=== PATIENT | female | born 1995 | race Caucasian/White ===

== ENCOUNTER 2018-02-09 15:05 | Emergency (ER) | payer SELFPAY ==
--- NOTE | 2018-02-09 15:57 | EDM.PDOCBH ---
ED HPI GENERAL MEDICAL PROBLEM - General Chief Complaint: Behavioral/Psych Stated Complaint: SUICIDAL Time Seen by Provider: 02/09/18 15:28 Source of Information: Reports: Patient History Limitations: Reports: No Limitations - History of Present Illness INITIAL COMMENTS - FREE TEXT/NARRATIVE: 22-year-old female with history of depression and anxiety presenting with suicidal ideation. Patient states she had an inpatient stay at [facility] in [place] in November of this year. After that inpatient psychiatric stay she lost her job. And after losing her job she is unable to afford her psychiatric medications. She was on Lexapro, hydroxyzine and trazodone. The last time she was able to take any of these medications is probably one month ago. Over the past few days patient has felt extremely depressed and suicidal with thoughts of harming herself. She has cut herself with a knife on her hips bilaterally. Also has been drinking more heavily than normal. Has plans to either drink too much to kill herself or take too many pills to kill herself. Patient was able to present to the emergency department today after being driven by her cousin. patient currently feels hopeless and no longer wants to live. Headache Pain Score (Numeric/FACES): 7 - Related Data Allergies Allergy/AdvReac Type Severity Reaction Status Date / Time meperidine [From Demerol] Allergy Airway Verified 02/09/18 15:18 Tightness Home Meds: Home Meds Escitalopram [Lexapro] 0 mg PO DAILY 02/09/18 [History] hydrOXYzine HCl [hydrOXYzine] 0 mg PO ASDIRECTED 02/09/18 [History] traZODone HCl [Trazodone HCl] 0 mg PO BEDTIME 02/09/18 [History] Past Medical History Psychiatric History: Reports: Anxiety, Depression - Past Surgical History HEENT Surgical History: Reports: Tonsillectomy GI Surgical History: Reports: Appendectomy Social & Family History - Tobacco Use Smoking Status *Q: Current Every Day Smoker Years of Tobacco use: 5 Packs/Tins Daily: 0.7 - Caffeine Use Caffeine Use: Reports: Soda - Recreational Drug Use Recreational Drug Use: No ED ROS GENERAL - Review of Systems Review Of Systems: See Below Constitutional: Reports: No Symptoms HEENT: Reports: No Symptoms Respiratory: Reports: No Symptoms Cardiovascular: Reports: No Symptoms Endocrine: Reports: No Symptoms GI/Abdominal: Reports: No Symptoms Musculoskeletal: Reports: No Symptoms Skin: Reports: Wound Neurological: Reports: No Symptoms Psychiatric: Reports: Suicidal Ideation ED EXAM, BEHAVIORAL HEALTH - Physical Exam Exam: See Below Exam Limited By: No Limitations General Appearance: Alert, No Apparent Distress Back Exam: Normal Inspection, Full Range of Motion Neurological: Alert, CN II-XII Intact, No Motor/Sensory Deficits Psychiatric: Alert, Depressed Mood, Tearful, Suicidal Plan, Suicidal Thoughts Skin Exam: Warm, Dry, Other (Several extremely superficial abrasions to the bilateral hips) COURSE, BEHAVIORAL HEALTH COMP - Course Vital Signs: Last Vital Signs Temp 36.4 C 02/09/18 21:00 Pulse 81 02/09/18 21:00 Resp 16 02/09/18 21:00 BP 108/73 02/09/18 21:00 Pulse Ox 96 02/09/18 21:00 Orders, Labs, Meds: Laboratory Tests 02/09/18 02/09/18 02/09/18 Range/Units 16:13 16:13 16:13 WBC 8.86 (3.98-10.04) K/mm3 RBC 5.55 H (3.98-5.22) M/mm3 Hgb 17.2 H (11.2-15.7) gm/L Hct 48.7 H (34.1-44.9) % MCV 87.7 (79.4-94.8) fl MCH 31.0 (25.6-32.2) pg MCHC 35.3 (32.2-35.5) g/dl RDW Std Deviation 39.6 (36.4-46.3) fL Plt Count 246 (182-369) K/mm3 MPV 9.9 (9.4-12.3) fl Neut % (Auto) 57.9 (34.0-71.1) % Lymph % (Auto) 30.9 (19.3-51.7) % [place] % (Auto) 6.3 (4.7-12.5) % Eos % (Auto) 4.2 (0.7-5.8) Baso % (Auto) 0.5 (0.1-1.2) % Neut # (Auto) 5.13 (1.56-6.13) K/mm3 Lymph # (Auto) 2.74 (1.18-3.74) K/mm3 [place] # (Auto) 0.56 H (0.24-0.36) K/mm3 Eos # (Auto) 0.37 H (0.04-0.36) K/mm3 Baso # (Auto) 0.04 (0.01-0.08) K/mm3 Sodium 140 (136-145) mEq/L Potassium 4.2 (3.5-5.1) mEq/L Chloride 103 (98-107) mEq/L Carbon Dioxide 25 (21-32) mEq/L Anion Gap 16.2 H (5-15) BUN 10 (7-18) mg/dL Creatinine 0.9 (0.55-1.02) mg/dL Est Cr Clr Drug Dosing 101.60 mL/min Estimated GFR (MDRD) > 60 (>60) mL/min BUN/Creatinine Ratio 11.1 L (14-18) Glucose 90 (74-106) mg/dL Calcium 9.5 (8.5-10.1) mg/dL Total Bilirubin 0.9 (0.2-1.0) mg/dL AST 27 (15-37) U/L ALT 32 (14-59) U/L Alkaline Phosphatase 64 (46-116) U/L Total Protein 7.9 (6.4-8.2) g/dl Albumin 4.0 (3.4-5.0) g/dl Globulin 3.9 gm/dL Albumin/Globulin Ratio 1.0 (1-2) TSH 3rd Generation < 0.007 L (0.358-3.74) uIU/mL Urine Color (Yellow) Urine Appearance (Clear) Urine pH (5.0-8.0) Ur Specific [place] (1.005-1.030) Urine Protein (Negative) Urine Glucose (UA) (Negative) Urine Ketones (Negative) Urine Occult Blood (Negative) Urine Nitrite (Negative) Urine Bilirubin (Negative) Urine Urobilinogen (0.2-1.0) Ur Leukocyte Esterase (Negative) Urine RBC (0-5) /hpf Urine WBC (0-5) /hpf Ur Epithelial Cells (0-5) /hpf Urine Bacteria (FEW) /hpf Urine Mucus (FEW) /hpf Salicylates 3.0 (2.8-20) mg/dL Urine Opiates Screen (NEGATIVE) Ur Buprenorphine Scrn (NEGATIVE) Ur Oxycodone Screen (NEGATIVE) Urine Methadone Screen (NEGATIVE) Ur Propoxyphene Screen (NEGATIVE) Acetaminophen 0 L (10-30) ug/mL Ur Barbiturates Screen (NEGATIVE) Ur Tricyclics Screen (NEGATIVE) Ur Phencyclidine Scrn (NEGATIVE) Ur Amphetamine Screen (NEGATIVE) U Methamphetamines Scrn (NEGATIVE) U Benzodiazepines Scrn (NEGATIVE) U Cocaine Metab Screen (NEGATIVE) U Marijuana (THC) Screen (NEGATIVE) Ethyl Alcohol 0.00 (0.00) gm% 02/09/18 02/09/18 Range/Units 16:15 16:15 WBC (3.98-10.04) K/mm3 RBC (3.98-5.22) M/mm3 Hgb (11.2-15.7) gm/L Hct (34.1-44.9) % MCV (79.4-94.8) fl MCH (25.6-32.2) pg MCHC (32.2-35.5) g/dl RDW Std Deviation (36.4-46.3) fL Plt Count (182-369) K/mm3 MPV (9.4-12.3) fl Neut % (Auto) (34.0-71.1) % Lymph % (Auto) (19.3-51.7) % [place] % (Auto) (4.7-12.5) % Eos % (Auto) (0.7-5.8) Baso % (Auto) (0.1-1.2) % Neut # (Auto) (1.56-6.13) K/mm3 Lymph # (Auto) (1.18-3.74) K/mm3 [place] # (Auto) (0.24-0.36) K/mm3 Eos # (Auto) (0.04-0.36) K/mm3 Baso # (Auto) (0.01-0.08) K/mm3 Sodium (136-145) mEq/L Potassium (3.5-5.1) mEq/L Chloride (98-107) mEq/L Carbon Dioxide (21-32) mEq/L Anion Gap (5-15) BUN (7-18) mg/dL Creatinine (0.55-1.02) mg/dL Est Cr Clr Drug Dosing mL/min Estimated GFR (MDRD) (>60) mL/min BUN/Creatinine Ratio (14-18) Glucose (74-106) mg/dL Calcium (8.5-10.1) mg/dL Total Bilirubin (0.2-1.0) mg/dL AST (15-37) U/L ALT (14-59) U/L Alkaline Phosphatase (46-116) U/L Total Protein (6.4-8.2) g/dl Albumin (3.4-5.0) g/dl Globulin gm/dL Albumin/Globulin Ratio (1-2) TSH 3rd Generation (0.358-3.74) uIU/mL Urine Color Yellow (Yellow) Urine Appearance Clear (Clear) Urine pH 7.0 (5.0-8.0) Ur Specific [place] 1.020 (1.005-1.030) Urine Protein Negative (Negative) Urine Glucose (UA) Negative (Negative) Urine Ketones Negative (Negative) Urine Occult Blood 2+ H (Negative) Urine Nitrite Negative (Negative) Urine Bilirubin Negative (Negative) Urine Urobilinogen 0.2 (0.2-1.0) Ur Leukocyte Esterase Negative (Negative) Urine RBC 0-5 (0-5) /hpf Urine WBC 0-5 (0-5) /hpf Ur Epithelial Cells 10-20 H (0-5) /hpf Urine Bacteria Few (FEW) /hpf Urine Mucus Few (FEW) /hpf Salicylates (2.8-20) mg/dL Urine Opiates Screen Negative (NEGATIVE) Ur Buprenorphine Scrn Negative (NEGATIVE) Ur Oxycodone Screen Negative (NEGATIVE) Urine Methadone Screen Negative (NEGATIVE) Ur Propoxyphene Screen Negative (NEGATIVE) Acetaminophen (10-30) ug/mL Ur Barbiturates Screen Negative (NEGATIVE) Ur Tricyclics Screen Negative (NEGATIVE) Ur Phencyclidine Scrn Negative (NEGATIVE) Ur Amphetamine Screen Negative (NEGATIVE) U Methamphetamines Scrn Negative (NEGATIVE) U Benzodiazepines Scrn Negative (NEGATIVE) U Cocaine Metab Screen Negative (NEGATIVE) U Marijuana (THC) Screen Negative (NEGATIVE) Ethyl Alcohol (0.00) gm% Re-Assessment/Re-Exam: 22-year-old female previously diagnosed with major depression and anxiety presenting with suicidal ideation. On initial exam the patient had normal vital signs and physical exam was only notable for very minor abrasions to the bilateral hips which apparently were self-inflicted by a knife. They do not appear to require repair at this time do not appear to be infected either. Patient's mental status exam is notable for suicidal ideation with a plan. The patient feels completely hopeless and despondent and plans to kill herself either by drinking, taking pills or using a knife. The patient has been off all of her psychotic medications for one month. And she wishes to voluntarily be admitted to psychiatric [facility]ier[facility] for further stabilization. Spoke with Dr. Wise at [facility] reviewed that the patient's screening labs were all normal. Patient is medically clear at this time. Attempting to arrange transportation. Transportation was arranged. Appropriate paperWork filled out. Patient was transferred in stable condition. Medical Clearance: CBC, CMP, ethanol level, salicylate and acetaminophen level were all unremarkable. Urinalysis urine drug screen is negative. Departure - Departure Time of Disposition: 21:00 Disposition: DC/Tfer to Psych Hosp/Unit 65 Condition: Good Clinical Impression: Depressive disorder, Suicidal ideation - Discharge Information *PRESCRIPTION DRUG MONITORING PROGRAM REVIEWED*: No *COPY OF PRESCRIPTION DRUG MONITORING REPORT IN PATIENT CHRIS: No Referrals: PCP,Not In Area [Primary Care Provider] - Forms: Interfacility Transfer M[facility]
[2018-02-09 17:08] LABS: ACETAMINOPHEN 0 ug/mL (10-30)
== END 2018-02-09 21:08 ==
LOC: JD.ED 15:05
DX: F32.9 Major depressive disorder, single episode, unspecified (principal); S70.212A Abrasion, left hip, initial encounter; S70.211A Abrasion, right hip, initial encounter; F17.210 Nicotine dependence, cigarettes, uncomplicated; Z88.6 Allergy status to analgesic agent; X78.8XXA Intentional self-harm by other sharp object, initial encounter
CPT/HCPCS: 36415; 80053; 80306; 81001; 84443; 85025; 99285; G0480

== ENCOUNTER 2020-06-15 18:13 | Inpatient (IN) | payer MEDICAID ==
[2020-06-15] MEDS ORDERED: Acetaminophen 325 MG Tab PO PRN (19:02)
[2020-06-15] MEDS ORDERED: Ondansetron 4 MG/2 ML SDV IVPUSH PRN (19:02)
[2020-06-15] MEDS ORDERED: Sodium Chloride 0.9% 10 ML Syringe FLUSH PRN (19:02)
[2020-06-15] MEDS ORDERED: Nalbuphine 10 MG/1 ML Vial IVPUSH PRN (19:02)
--- NOTE | 2020-06-15 19:07 | PCM.LDHP ---
L&D History of Present Illness - General Date of Service: 06/15/20 Admit Problem/Dx: Patient Status Order with Admit Dx/Problem 06/15/20 18:24 Patient Status [ADT] Routine Admission Diagnosis/Problem Admission Diagnosis/Problem Source of Information: Patient History Limitations: Reports: No Limitations - History of Present Illness Introduction:: Patient is a 25 y/o at 38 3/7 wks who presented for concerns of labor. Seen yesterday on L&D and only 1 cm dilated. Today in clinic with similar exam and upper limit of normal BP. Since seen in clinic states contractions have become stronger. Rates as an 01/19. 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: : 1 Para: 0 Psychiatric History: Reports: Anxiety, Depression - Past Surgical History HEENT Surgical History: Reports: Tonsillectomy GI Surgical History: Reports: Appendectomy Social & Family History - Tobacco Use Tobacco Use Status *Q: Current Every Day Tobacco User - Caffeine Use Caffeine Use: Reports: Soda - Alcohol Use Alcohol Use History: Yes Alcohol Use in Last Twelve Months: No - Recreational Drug Use Recreational Drug Use: No H&P Review of Systems - Review of Systems: Review Of Systems: See Below General: Reports: No Symptoms HEENT: Denies: Headaches, Visual Changes Pulmonary: Reports: No Symptoms Cardiovascular: Reports: No Symptoms Gastrointestinal: Reports: Abdominal Pain (contraction pain) Genitourinary: Reports: No Symptoms Musculoskeletal: Reports: No Symptoms Psychiatric: Reports: No Symptoms L&D Exam - Exam Exam: See Below - Vital Signs Vital Signs: Last Vital Signs Temp 36.8 C 06/15/20 18:24 Pulse 102 H 06/15/20 18:24 Resp 14 06/15/20 18:24 BP 137/98 H 06/15/20 18:24 Pulse Ox 100 06/15/20 18:24 Weight: 109.633 kg - OB Specific Contraction Intensity: Mild to Moderate Movement: Active Heart Tones: Present Heart Tones per Min: 135 Heart Rate (FHR) Variability: Moderate (6-25 bmp) Presentation: Vertex - Laurent Score Laurent Score Cervix Position: Posterior Laurent Score Consistency: Soft Laurent Score Effacement: >80% Laurent Score Dilation: 1-2 cm Laurent Score 's Station: -2 Laurent Score Total: 7 - Exam General: Alert, Oriented, Cooperative Lungs: Clear to Auscultation, Normal Respiratory Effort Cardiovascular: Regular Rate, Regular Rhythm GI/Abdominal Exam: Soft, Non-Tender Genitourinary: Normal external exam Extremities: Normal Inspection Skin: Warm, Dry, Intact - Patient Data Result Diagrams: 06/15/20 19:12 06/15/20 19:12 - Problem List (1) 38 weeks gestation of SNOMED Code(s): 21693321 ICD Code: Z3A.38 - 38 WEEKS GESTATION OF Status: Acute Current Visit: Yes (2) Preeclampsia SNOMED Code(s): 120345476 ICD Code: O14.90 - UNSPECIFIED PRE-ECLAMPSIA, UNSPECIFIED TRIMESTER Status: Acute Current Visit: Yes Qualifiers: Trimester: third trimester Qualified Code(s): O14.93 - Unspecified pre- eclampsia, third trimester Problem List Initiated/Reviewed/Updated: Yes Orders Last 24hrs: Active Orders 24 hr Category Date Time Status Patient Status [ADT] Routine ADT 06/15/20 18:24 Active Activity as Tolerated [RC] PFP Care 06/15/20 19:03 Ordered Communication Order [RC] ASDIRECTED Care 06/15/20 19:03 Ordered Heart Tones [RC] ASDIRECTED Care 06/15/20 19:05 Ordered Non Stress Test [RC] PER UNIT ROUTINE Care 06/15/20 18:24 Active Notify Provider [RC] PFP Care 06/15/20 19:03 Ordered Notify Provider [RC] PRN Care 06/15/20 19:03 Ordered Peripheral IV Care [RC] . DIRECTED Care 06/15/20 19:05 Ordered Vital Signs [RC] PER UNIT ROUTINE Care 06/15/20 18:24 Active ALANINE AMINOTRANSFERASE,ALT [CHEM] Routine Lab 06/15/20 19:02 Ordered ASPARTATE AMNIOTRANSFERASE,AST [CHEM] Routine Lab 06/15/20 19:02 Ordered CBC W/O DIFF,HEMOGRAM [HEME] Stat Lab 06/15/20 19:02 Ordered CORONAVIRUS COVID-19 NADINE [MOLEC] Stat Lab 06/15/20 19:04 Ordered CREATININE W/GFR [CHEM] Stat Lab 06/15/20 19:02 Ordered PROTEIN/CREATININE RATIO,URINE [URCHEM] Routine Lab 06/15/20 19:02 Ordered RAPID PLASMA REAGIN,RPR [CHEM] Routine Lab 06/15/20 19:03 Ordered TYPE AND SCREEN [BBK] Stat Lab 06/15/20 19:02 Ordered Acetaminophen [TylenoL] Med 06/15/20 19:02 Ordered 650 mg PO Q4H PRN Lactated Ringers [Ringers, Lactated] 1,000 ml Med 06/15/20 19:15 Ordered IV ASDIRECTED Nalbuphine [Nubain] Med 06/15/20 19:02 Ordered 10 mg IVPUSH Q2H PRN Ondansetron [Zofran] Med 06/15/20 19:02 Ordered 4 mg IVPUSH Q4H PRN Oxytocin/Lactated Ringers [Pitocin in LR 10 Units/1,000 Med 06/15/20 19:15 Ordered ML] 10 unit in 1,000 ml IV .CONTINUOUS Oxytocin/Lactated Ringers [Pitocin in LR 10 Units/1,000 Med 06/15/20 19:15 Ordered ML] 10 unit in 1,000 ml IV TITRATE Sodium Chloride 0.9% [Saline Flush] Med 06/15/20 19:02 Ordered 10 ml FLUSH ASDIRECTED PRN Electronic Heart Tones Ext w TOCO [WOMSER] Oth 06/15/20 19:03 Ordered Routine Electronic Heart Tones Internal [WOMSER] Per Unit Oth 06/15/20 19:03 Ordered Routine Peripheral IV Insertion Adult [OM.PC] Routine Oth 06/15/20 19:03 Ordered Resuscitation Status Routine Resus Stat 06/15/20 18:24 Ordered Medication Orders Acetaminophen (Tylenol) 650 mg PO Q4H PRN PRN Reason: Pain (Mild 1-3) and fever Lactated Ringer's (Ringers, Lactated) 1,000 mls @ 100 mls/hr IV ASDIRECTED RUSS Oxytocin/Lactated Ringer's (Pitocin In Lr 10 Units/1,000 Ml) 10 unit in 1,000 mls @ 500 mls/hr IV .CONTINUOUS RUSS Oxytocin/Lactated Ringer's (Pitocin In Lr 10 Units/1,000 Ml) 10 unit in 1,000 mls @ 12 mls/hr IV TITRATE RUSS; Protocol Nalbuphine HCl (Nubain) 10 mg IVPUSH Q2H PRN PRN Reason: Pain Ondansetron HCl (Zofran) 4 mg IVPUSH Q4H PRN PRN Reason: Nausea/Vomiting Sodium Chloride (Saline Flush) 10 ml FLUSH ASDIRECTED PRN PRN Reason: Keep Vein Open Assessment/Plan Comment:: Patient with minimal cervical change since this AM, but with persistent mild range BP's and so decision made to admit. Urine protein to creatinine ratio with elevated ratio. While lab work being drawn had a cluster of severe range BP's, but then back to mild range. Will continue to monitor closely. Right now treating as preeclampsia without severe features. If further severe pressures will need anti-hypertensive treatment and magnesium for severe preeclampsia. Labs otherwise normal. * GBS negative * Pitocin for augmentation * Epidural on request * Anticipate
[2020-06-15] MEDS ORDERED: Oxytocin/Lactated Ringers 10 UNIT/1,000 ML BAG IV SCH ×2 (19:15)
[2020-06-15] MEDS: Lactated Ringers 1,000 ML IV SCH ×2 (21:27→22:48)
[2020-06-15] MEDS ORDERED: diphenhydrAMINE 50 MG/ML SDV IVPUSH PRN (22:49)
[2020-06-15] MEDS ORDERED: fentaNYL 100 MCG/2 ML SDV EPIDUR PRN (22:49)
[2020-06-15] MEDS ORDERED: ePHEDrine 50 MG/ML SDV IVPUSH PRN (22:49)
[2020-06-15] MEDS ORDERED: Bupivacaine/fentaNYL/NS 100 ML Bag EPIDUR PRN (22:49)
--- NOTE | 2020-06-15 23:38 | PCM.PREANE ---
Preanesthetic Assessment - Procedure Proposed Procedure: epidural - Anesthesia/Transfusion/Family Hx Anesthesia History: Prior Anesthesia Without Reaction Family History of Anesthesia Reaction: No Transfusion History: No Prior Transfusion(s) - Review of Systems General: Fatigue Pulmonary: No Symptoms Cardiovascular: No Symptoms Gastrointestinal: Abdominal Pain (labor) Neurological: No Symptoms Other: Reports: None - Physical Assessment Vital Signs: Last Vital Signs Temp 36.8 C 06/15/20 18:24 Pulse 102 H 06/15/20 18:24 Resp 14 06/15/20 18:24 BP 137/98 H 06/15/20 18:24 Pulse Ox 100 06/15/20 18:24 Height: 1.78 m Weight: 109.633 kg ASA Class: 2 Mental Status: Alert & Oriented x3 Airway Class: Mallampati = 1 Dentition: Reports: Normal Dentition Thyro-Mental Finger Breadths: 3 Mouth Opening Finger Breadths: 3 ROM/Head Extension: Full Lungs: Clear to Auscultation, Normal Respiratory Effort Cardiovascular: Regular Rate, Regular Rhythm - Lab Values: Laboratory Last Values WBC 13.70 K/mm3 (3.98-10.04) H 06/15/20 19:12 RBC 4.86 M/mm3 (3.98-5.22) 06/15/20 19:12 Hgb 14.9 gm/dl (11.2-15.7) 06/15/20 19:12 Hct 42.8 % (34.1-44.9) 06/15/20 19:12 MCV 88.1 fl (79.4-94.8) 06/15/20 19:12 MCH 30.7 pg (25.6-32.2) 06/15/20 19:12 MCHC 34.8 g/dl (32.2-35.5) 06/15/20 19:12 RDW Std Deviation 41.3 fL (36.4-46.3) 06/15/20 19:12 Plt Count 213 K/mm3 (182-369) 06/15/20 19:12 MPV 10.9 fl (9.4-12.3) 06/15/20 19:12 Creatinine 0.8 mg/dL (0.55-1.02) 06/15/20 19:12 Est Cr Clr Drug Dosing 115.24 mL/min 06/15/20 19:12 Estimated GFR (MDRD) > 60 mL/min (>60) 06/15/20 19:12 AST 14 U/L (15-37) L 06/15/20 19:12 ALT 12 U/L (14-59) L 06/15/20 19:12 Ur Random Creatinine 120.2 mg/dL (30.0-125.0) 06/15/20 19:20 U Random Total Protein 31.1 mg/dL (0.0-11.8) H 06/15/20 19:20 Protein/Creatinin Ratio 258.7 mg/g (0-149) H 06/15/20 19:20 RPR Non-reactive (NONREACTIVE) 06/15/20 19:12 SARS-CoV-2 RNA (NADINE) Negative (NEGATIVE) 06/15/20 19:20 Blood Type A POSITIVE 06/15/20 19:20 Gel Antibody Screen Negative 06/15/20 19:20 - Allergies Allergies/Adverse Reactions: Allergies Allergy/AdvReac Type Severity Reaction Status Date / Time meperidine [From Demerol] Allergy Airway Verified 06/15/20 18:37 Tightness - Anesthesia Plan Pre-Op Medication Ordered: None - Acknowledgements Anesthesia Type Planned: Epidural Pt an Appropriate Candidate for the Planned Anesthesia: Yes Alternatives and Risks of Anesthesia Discussed w Pt/Guardian: Yes Pt/Guardian Understands and Agrees with Anesthesia Plan: Yes PreAnesthesia Questionnaire Gastrointestinal History: Reports: [employer] MA[employer]GER History: Reports: Psychiatric History: Reports: Anxiety, Depression, Other (See Below) Other Psychiatric History: Hospitalized in [place] for depression in 2017 - Past Surgical History HEENT Surgical History: Reports: Tonsillectomy GI Surgical History: Reports: Appendectomy - SUBSTANCE USE Tobacco Use Status *Q: Current Every Day Tobacco User Tobacco Use Within Last Twelve Months: Cigarettes Second Hand Smoke Exposure: Yes Recreational Drug Use History: No - HOME MEDS Home Medications: Home Meds Mv-Mn/Iron/FA/Herbal/Digestive [ One Tablet] 1 each PO DAILY 06/14/20 [History] - CURRENT (IN HOUSE) MEDS Current Meds: Current Medications Acetaminophen (Tylenol) 650 mg PO Q4H PRN PRN Reason: Pain (Mild 1-3) and fever Diphenhydramine HCl (Benadryl) 25 mg IVPUSH Q6H PRN PRN Reason: pruritis Ephedrine Sulfate (Ephedrine Sulfate) 5 mg IVPUSH ASDIRECTED PRN PRN Reason: Hypotension Fentanyl (Sublimaze) 100 mcg EPIDUR Q3H PRN PRN Reason: Pain Last Admin: 06/15/20 23:14 Dose: 100 mcg Documented by: Fentanyl/Bupivacaine HCl (Fentanyl/Bupivacaine/Ns 2 Mcg-0.125% 100 Ml) 100 ml EPIDUR ASDIRECTED PRN PRN Reason: Pain Last Admin: 06/15/20 23:16 Dose: 100 ml Documented by: Lactated Ringer's (Ringers, Lactated) 1,000 mls @ 100 mls/hr IV ASDIRECTED RUSS Last Admin: 06/15/20 22:48 Dose: 100 mls/hr Documented by: Oxytocin/Lactated Ringer's (Pitocin In Lr 10 Units/1,000 Ml) 10 unit in 1,000 mls @ 500 mls/hr IV .CONTINUOUS RUSS Oxytocin/Lactated Ringer's (Pitocin In Lr 10 Units/1,000 Ml) 10 unit in 1,000 mls @ 12 mls/hr IV TITRATE RUSS; Protocol Last Admin: 06/15/20 22:48 Dose: 2 munits/min, 12 mls/hr Documented by: Nalbuphine HCl (Nubain) 10 mg IVPUSH Q2H PRN PRN Reason: Pain Ondansetron HCl (Zofran) 4 mg IVPUSH Q4H PRN PRN Reason: Nausea/Vomiting Sodium Chloride (Saline Flush) 10 ml FLUSH ASDIRECTED PRN PRN Reason: Keep Vein Open
[2020-06-16] MEDS ORDERED: ePHEDrine Sulfate/0.9% NaCl/Pf 25 MG/5 ML SYRINGE IV ONE
[2020-06-16] MEDS ORDERED: Bupivacaine 0.25% 10 ML SDV ONE
[2020-06-16] MEDS: Calcium Carbonate 500 MG Tab.Chew PO PRN ×3 (00:21→05:17)
[2020-06-16] MEDS: Lactated Ringers 1,000 ML IV SCH (01:29)
--- NOTE | 2020-06-16 06:04 | PCM.DEL ---
L & D Note - General Info Date of Service: 06/16/20 - Delivery Note Labor: Augmented by Oxytocin Delivery Outcome: Livebirth Delivery Method: Spontaneous Vaginal Delivery-Single Delivery Mode: Spontaneous Presentation: Right Occiput Anterior (OJ) Nuchal Cord: None Anesthesia Type: Epidural Amniotic Fluid Description: Clear Episiotomy Type: None Laceration: 1st Degree, Labial Placenta: Intact, Spontaneous Cord: 3 Vessels Estimated Blood Loss: 100 Resuscitation Needed: Yes [place]: Bulb Syringe, Stimulated, Warmed, [place] Used, Warmer Used Delivery Comments (Free Text/Narrative):: Patient found to be complete and began pushing. With maternal pushing effort head delivered from OJ presentation. No nuchal cord present. With gentle downward traction the shoulders and body delivered. Infant placed on maternal abdomen. Cord clamped and cut. Cord blood obtained. Placenta allowed time to separate and expelled intact. Inspection of perineum showed small, hemostatic bilateral labial lacerations. Not repaired - General Info Date of Service: 06/16/20 - Patient Data Vitals - Most Recent: Last Vital Signs Temp 36.8 C 06/15/20 18:24 Pulse 102 H 06/15/20 18:24 Resp 14 06/15/20 18:24 BP 137/98 H 06/15/20 18:24 Pulse Ox 100 06/15/20 18:24 Weight - Most Recent: 109.633 kg I&O - Last 24 Hours: Intake & Output 06/15/20 06/15/20 06/16/20 14:59 22:59 06:59 Intake Total 1000 Balance 1000 Lab Results Last 24 Hours: Laboratory Results - last 24 hr 06/15/20 06/15/20 06/15/20 Range/Units 19:12 19:12 19:12 WBC 13.70 H (3.98-10.04) K/mm3 RBC 4.86 (3.98-5.22) M/mm3 Hgb 14.9 (11.2-15.7) gm/dl Hct 42.8 (34.1-44.9) % MCV 88.1 (79.4-94.8) fl MCH 30.7 (25.6-32.2) pg MCHC 34.8 (32.2-35.5) g/dl RDW Std Deviation 41.3 (36.4-46.3) fL Plt Count 213 (182-369) K/mm3 MPV 10.9 (9.4-12.3) fl Creatinine 0.8 (0.55-1.02) mg/dL Est Cr Clr Drug Dosing 115.24 mL/min Estimated GFR (MDRD) > 60 (>60) mL/min AST 14 L (15-37) U/L ALT 12 L (14-59) U/L Ur Random Creatinine (30.0-125.0) mg/dL U Random Total Protein (0.0-11.8) mg/dL Protein/Creatinin Ratio (0-149) mg/g RPR (NONREACTIVE) SARS-CoV-2 RNA (NADINE) (NEGATIVE) Blood Type Gel Antibody Screen 06/15/20 06/15/20 06/15/20 Range/Units 19:12 19:20 19:20 WBC (3.98-10.04) K/mm3 RBC (3.98-5.22) M/mm3 Hgb (11.2-15.7) gm/dl Hct (34.1-44.9) % MCV (79.4-94.8) fl MCH (25.6-32.2) pg MCHC (32.2-35.5) g/dl RDW Std Deviation (36.4-46.3) fL Plt Count (182-369) K/mm3 MPV (9.4-12.3) fl Creatinine (0.55-1.02) mg/dL Est Cr Clr Drug Dosing mL/min Estimated GFR (MDRD) (>60) mL/min AST (15-37) U/L ALT (14-59) U/L Ur Random Creatinine 120.2 (30.0-125.0) mg/dL U Random Total Protein 31.1 H (0.0-11.8) mg/dL Protein/Creatinin Ratio 258.7 H (0-149) mg/g RPR Non-reactive (NONREACTIVE) SARS-CoV-2 RNA (NADINE) (NEGATIVE) Blood Type A POSITIVE Gel Antibody Screen Negative 06/15/20 Range/Units 19:20 WBC (3.98-10.04) K/mm3 RBC (3.98-5.22) M/mm3 Hgb (11.2-15.7) gm/dl Hct (34.1-44.9) % MCV (79.4-94.8) fl MCH (25.6-32.2) pg MCHC (32.2-35.5) g/dl RDW Std Deviation (36.4-46.3) fL Plt Count (182-369) K/mm3 MPV (9.4-12.3) fl Creatinine (0.55-1.02) mg/dL Est Cr Clr Drug Dosing mL/min Estimated GFR (MDRD) (>60) mL/min AST (15-37) U/L ALT (14-59) U/L Ur Random Creatinine (30.0-125.0) mg/dL U Random Total Protein (0.0-11.8) mg/dL Protein/Creatinin Ratio (0-149) mg/g RPR (NONREACTIVE) SARS-CoV-2 RNA (NADINE) Negative (NEGATIVE) Blood Type Gel Antibody Screen Med Orders - Current: Current Medications Acetaminophen (Tylenol) 650 mg PO Q4H PRN PRN Reason: Pain (Mild 1-3) and fever Calcium Carbonate/Glycine (Tums) 1,000 mg PO Q2HR PRN PRN Reason: Indigestion Last Admin: 06/16/20 05:17 Dose: 1,000 mg Documented by: Diphenhydramine HCl (Benadryl) 25 mg IVPUSH Q6H PRN PRN Reason: pruritis Ephedrine Sulfate (Ephedrine Sulfate) 5 mg IVPUSH ASDIRECTED PRN PRN Reason: Hypotension Fentanyl (Sublimaze) 100 mcg EPIDUR Q3H PRN PRN Reason: Pain Last Admin: 06/15/20 23:14 Dose: 100 mcg Documented by: Fentanyl/Bupivacaine HCl (Fentanyl/Bupivacaine/Ns 2 Mcg-0.125% 100 Ml) 100 ml EPIDUR ASDIRECTED PRN PRN Reason: Pain Last Admin: 06/15/20 23:16 Dose: 100 ml Documented by: Lactated Ringer's (Ringers, Lactated) 1,000 mls @ 100 mls/hr IV ASDIRECTED RUSS Last Admin: 06/16/20 01:29 Dose: 100 mls/hr Documented by: Oxytocin/Lactated Ringer's (Pitocin In Lr 10 Units/1,000 Ml) 10 unit in 1,000 mls @ 500 mls/hr IV .CONTINUOUS RUSS Oxytocin/Lactated Ringer's (Pitocin In Lr 10 Units/1,000 Ml) 10 unit in 1,000 mls @ 12 mls/hr IV TITRATE RUSS; Protocol Last Titration: 06/16/20 04:40 Dose: 1 munits/min, 6 mls/hr Documented by: Nalbuphine HCl (Nubain) 10 mg IVPUSH Q2H PRN PRN Reason: Pain Ondansetron HCl (Zofran) 4 mg IVPUSH Q4H PRN PRN Reason: Nausea/Vomiting Sodium Chloride (Saline Flush) 10 ml FLUSH ASDIRECTED PRN PRN Reason: Keep Vein Open - Problem List & Annotations (1) 38 weeks gestation of SNOMED Code(s): 97142646 Code(s): Z3A.38 - 38 WEEKS GESTATION OF Status: Acute Current Visit: Yes (2) Preeclampsia SNOMED Code(s): 261363133 Code(s): O14.90 - UNSPECIFIED PRE-ECLAMPSIA, UNSPECIFIED TRIMESTER Status: Acute Current Visit: Yes Qualifiers: Trimester: third trimester Qualified Code(s): O14.93 - Unspecified pre- eclampsia, third trimester (3) Vaginal delivery SNOMED Code(s): 498585727 Code(s): O80 - ENCOUNTER FOR FULL-TERM UNCOMPLICATED DELIVERY Status: Acute Current Visit: Yes - Problem List Review Problem List Initiated/Reviewed/Updated: Yes - My Orders Last 24 Hours: My Active Orders 06/15/20 18:24 Patient Status [ADT] Routine Non Stress Test [RC] PER UNIT ROUTINE Vital Signs [RC] PER UNIT ROUTINE Resuscitation Status Routine 06/15/20 19:02 Acetaminophen [TylenoL] 650 mg PO Q4H PRN Nalbuphine [Nubain] 10 mg IVPUSH Q2H PRN Ondansetron [Zofran] 4 mg IVPUSH Q4H PRN Sodium Chloride 0.9% [Saline Flush] 10 ml FLUSH ASDIRECTED PRN 06/15/20 19:03 Activity as Tolerated [RC] PFP Communication Order [RC] ASDIRECTED Notify Provider [RC] PFP Notify Provider [RC] PRN Electronic Heart Tones Ext w TOCO [WOMSER] Routine Electronic Heart Tones Internal [WOMSER] Per Unit Routine Peripheral IV Insertion Adult [OM.PC] Routine 06/15/20 19:05 Heart Tones [RC] ASDIRECTED Peripheral IV Care [RC] . DIRECTED 06/15/20 19:15 Lactated Ringers [Ringers, Lactated] 1,000 ml IV ASDIRECTED Oxytocin/Lactated Ringers [Pitocin in LR 10 Units/1,000 ML] 10 unit in 1,000 ml IV .CONTINUOUS Oxytocin/Lactated Ringers [Pitocin in LR 10 Units/1,000 ML] 10 unit in 1,000 ml IV TITRATE 06/16/20 00:06 Calcium Carbonate [Tums] 1,000 mg PO Q2HR PRN - Assessment Assessment:: PPD#0 - Plan Plan:: * Routine cares * Breast feeding * Monitor BP's closely * Discharge home in 2 days
--- NOTE | 2020-06-16 06:48 | PCM.SN.2 ---
- Free Text/Narrative Note: 0636 called to room to assist with removal of epidural. Had patient sit straight up and with a small tug it came out tip intact. Out of room at 0646
[2020-06-16] MEDS ORDERED: Docusate Sodium 100 MG Cap PO PRN (06:55)
[2020-06-16] MEDS ORDERED: Acetaminophen 325 MG Tab PO PRN (06:55)
[2020-06-16] MEDS ORDERED: Benzocaine/Menthol 20%-0.5% Spray 56 GM Canister TOP PRN (06:55)
[2020-06-16] MEDS ORDERED: Witch Hazel Medicated Pads 40/Jar TOP PRN (06:55)
--- NOTE | 2020-06-16 07:59 | PCM48HPAN ---
Post Anesthesia Note - EVALUATION WITHIN 48HRS OF ANESTHETIC Vital Signs in Normal Range: Yes Patient Participated in Evaluation: Yes Respiratory Function Stable: Yes Airway Patent: Yes Cardiovascular Function Stable: Yes Hydration Status Stable: Yes Pain Control Satisfactory: Yes Nausea and Vomiting Control Satisfactory: Yes Mental Status Recovered: Yes Vital Signs: Last Vital Signs Temp 36.8 C 06/15/20 18:24 Pulse 102 H 06/15/20 18:24 Resp 14 06/15/20 18:24 BP 137/98 H 06/15/20 18:24 Pulse Ox 100 06/15/20 18:24
[2020-06-16] MEDS: Ibuprofen 600 MG Tab PO PRN (10:40)
[2020-06-17] MEDS: Ibuprofen 600 MG Tab PO PRN (03:49)
--- NOTE | 2020-06-17 06:56 | PCM.DCSUM1 ---
Discharge Summary - Discharge Data Discharge Date: 06/17/20 Discharge Disposition: Home, Self-Care 01 Condition: Good - Referral to Home Health Primary Care Physician: Claire Augustine MD - Discharge Diagnosis/Problem(s) (1) 38 weeks gestation of SNOMED Code(s): 01140901 ICD Code: Z3A.38 - 38 WEEKS GESTATION OF Status: Acute Current Visit: Yes (2) Preeclampsia SNOMED Code(s): 246646307 ICD Code: O14.90 - UNSPECIFIED PRE-ECLAMPSIA, UNSPECIFIED TRIMESTER Status: Acute Current Visit: Yes Qualifiers: Trimester: third trimester Qualified Code(s): O14.93 - Unspecified pre- eclampsia, third trimester (3) Vaginal delivery SNOMED Code(s): 164871242 ICD Code: O80 - ENCOUNTER FOR FULL-TERM UNCOMPLICATED DELIVERY Status: Acute Current Visit: Yes - Patient Summary/Data Complications: None Consults: None Recommended Follow-up Testing/Procedures: Follow up in 1 week for BP check and 3 weeks for check Hospital Course: 25 y/o at 38 3/7 wks who presented in early labor and also with findings of elevated BP/diagnosis of preeclampsia without severe features. She was augmented with pitocin . Progressed well to complete dilation and underwent an uncomplicated . See delivery note. did well and was discharged home on PPD#1 - Patient Instructions Diet: Regular Diet as Tolerated Activity: As Tolerated Activity, Other: Pelvic rest for 6 weeks Driving: May Drive Today Showering/Bathing: May Shower Showering/Bathing, Other: May Bathe Notify Provider of: Fever, Increased Pain, Swelling and Redness, Drainage, Nausea and/or Vomiting - Discharge Plan *PRESCRIPTION DRUG MONITORING PROGRAM REVIEWED*: No *COPY OF PRESCRIPTION DRUG MONITORING REPORT IN PATIENT CHRIS: No Home Medications: Home Meds Vits #93/Iron Fum/FA [ Formula Tablet] 1 tab PO DAILY 06/16/20 [History] Ibuprofen [Motrin] 600 mg PO Q6H PRN tablet 06/17/20 [Rx] Patient Handouts: Steps to Quit Smoking Referrals: Claire Augustine MD [Primary Care Provider] - (1 week for BP check - RN only 3 weeks for check, can be telehealth ) - Discharge Summary/Plan Comment DC Time >30 min.: No - Patient Data Vitals - Most Recent: Last Vital Signs Temp 36.6 C 06/17/20 03:16 Pulse 72 06/17/20 03:16 Resp 16 06/17/20 03:16 BP 114/89 06/17/20 03:16 Pulse Ox 98 06/17/20 03:16 Weight - Most Recent: 109.633 kg I&O - Last 24 hours: Intake & Output 06/16/20 06/16/20 06/17/20 14:59 22:59 06:59 Intake Total 2000 120 Output Total 600 Balance 1400 120 Med Orders - Current: Current Medications Acetaminophen (Tylenol) 650 mg PO Q4H PRN PRN Reason: mild pain or fever Last Admin: 06/16/20 16:05 Dose: 650 mg Documented by: Benzocaine/Menthol (Dermoplast Pain Relief [place]) 0 gm TOP ASDIRECTED PRN PRN Reason: Perineal Comfort Measure Last Admin: 06/16/20 09:30 Dose: 1 can Documented by: Docusate Sodium (Colace) 100 mg PO BID PRN PRN Reason: Constipation Last Admin: 06/16/20 10:40 Dose: 100 mg Documented by: Ibuprofen (Motrin) 600 mg PO Q6H PRN PRN Reason: Mild pain or fever Last Admin: 06/17/20 03:49 Dose: 600 mg Documented by: Brandy Guardado ([facility] 1 pad TOP ASDIRECTED PRN PRN Reason: Perineal Comfort Measure Last Admin: 06/16/20 09:00 Dose: 1 tub Documented by: Discontinued Medications Acetaminophen (Tylenol) 650 mg PO Q4H PRN PRN Reason: Pain (Mild 1-3) and fever Bupivacaine HCl (Sensorcaine-Mpf 0.25%) 10 ml .ROUTE .STK-MED ONE Stop: 06/16/20 00:01 Calcium Carbonate/Glycine (Tums) 1,000 mg PO Q2HR PRN PRN Reason: Indigestion Last Admin: 06/16/20 05:17 Dose: 1,000 mg Documented by: Diphenhydramine HCl (Benadryl) 25 mg IVPUSH Q6H PRN PRN Reason: pruritis Ephedrine Sulfate (Ephedrine Sulfate) 5 mg IVPUSH ASDIRECTED PRN PRN Reason: Hypotension Ephedrine Sulfate (Ephedrine 25 Mg/5 Ml Syringe) 25 mg IV .STK-MED ONE Stop: 06/16/20 00:01 Fentanyl (Sublimaze) 100 mcg EPIDUR Q3H PRN PRN Reason: Pain Last Admin: 06/15/20 23:14 Dose: 100 mcg Documented by: Fentanyl/Bupivacaine HCl (Fentanyl/Bupivacaine/Ns 2 Mcg-0.125% 100 Ml) 100 ml EPIDUR ASDIRECTED PRN PRN Reason: Pain Last Admin: 06/15/20 23:16 Dose: 100 ml Documented by: Lactated Ringer's (Ringers, Lactated) 1,000 mls @ 100 mls/hr IV ASDIRECTED RUSS Last Admin: 06/16/20 01:29 Dose: 100 mls/hr Documented by: Oxytocin/Lactated Ringer's (Pitocin In Lr 10 Units/1,000 Ml) 10 unit in 1,000 mls @ 500 mls/hr IV .CONTINUOUS RUSS Oxytocin/Lactated Ringer's (Pitocin In Lr 10 Units/1,000 Ml) 10 unit in 1,000 mls @ 12 mls/hr IV TITRATE RUSS; Protocol Last Titration: 06/16/20 04:40 Dose: 1 munits/min, 6 mls/hr Documented by: Nalbuphine HCl (Nubain) 10 mg IVPUSH Q2H PRN PRN Reason: Pain Ondansetron HCl (Zofran) 4 mg IVPUSH Q4H PRN PRN Reason: Nausea/Vomiting Sodium Chloride (Saline Flush) 10 ml FLUSH ASDIRECTED PRN PRN Reason: Keep Vein Open
--- NOTE | 2020-06-17 06:56 | PCM.PNPP ---
- General Info Date of Service: 06/17/20 Functional Status: Reports: Pain Controlled, Tolerating Diet, Ambulating, Urinating - Review of Systems General: Reports: No Symptoms Pulmonary: Reports: No Symptoms Cardiovascular: Reports: No Symptoms Gastrointestinal: Reports: No Symptoms Genitourinary: Reports: No Symptoms Musculoskeletal: Reports: No Symptoms Neurological: Reports: No Symptoms - Patient Data Vital Signs - Most Recent: Last Vital Signs Temp 36.6 C 06/17/20 03:16 Pulse 72 06/17/20 03:16 Resp 16 06/17/20 03:16 BP 114/89 06/17/20 03:16 Pulse Ox 98 06/17/20 03:16 Weight - Most Recent: 109.633 kg I&O - Last 24 Hours: Intake & Output 06/16/20 06/16/20 06/17/20 14:59 22:59 06:59 Intake Total 2000 120 Output Total 600 Balance 1400 120 Med Orders - Current: Current Medications Acetaminophen (Tylenol) 650 mg PO Q4H PRN PRN Reason: mild pain or fever Last Admin: 06/16/20 16:05 Dose: 650 mg Documented by: Benzocaine/Menthol (Dermoplast Pain Relief [place]) 0 gm TOP ASDIRECTED PRN PRN Reason: Perineal Comfort Measure Last Admin: 06/16/20 09:30 Dose: 1 can Documented by: Docusate Sodium (Colace) 100 mg PO BID PRN PRN Reason: Constipation Last Admin: 06/16/20 10:40 Dose: 100 mg Documented by: Ibuprofen (Motrin) 600 mg PO Q6H PRN PRN Reason: Mild pain or fever Last Admin: 06/17/20 03:49 Dose: 600 mg Documented by: Brandy Guardado (Tucks) 1 pad TOP ASDIRECTED PRN PRN Reason: Perineal Comfort Measure Last Admin: 06/16/20 09:00 Dose: 1 tub Documented by: Discontinued Medications Acetaminophen (Tylenol) 650 mg PO Q4H PRN PRN Reason: Pain (Mild 1-3) and fever Bupivacaine HCl (Sensorcaine-Mpf 0.25%) 10 ml .ROUTE .STK-MED ONE Stop: 06/16/20 00:01 Calcium Carbonate/Glycine (Tums) 1,000 mg PO Q2HR PRN PRN Reason: Indigestion Last Admin: 06/16/20 05:17 Dose: 1,000 mg Documented by: Diphenhydramine HCl (Benadryl) 25 mg IVPUSH Q6H PRN PRN Reason: pruritis Ephedrine Sulfate (Ephedrine Sulfate) 5 mg IVPUSH ASDIRECTED PRN PRN Reason: Hypotension Ephedrine Sulfate (Ephedrine 25 Mg/5 Ml Syringe) [address]-MED ONE Stop: 06/16/20 00:01 Fentanyl (Sublimaze) 100 mcg EPIDUR Q3H PRN PRN Reason: Pain Last Admin: 06/15/20 23:14 Dose: 100 mcg Documented by: Fentanyl/Bupivacaine HCl (Fentanyl/Bupivacaine/Ns 2 Mcg-0.125% 100 Ml) 100 ml EPIDUR ASDIRECTED PRN PRN Reason: Pain Last Admin: 06/15/20 23:16 Dose: 100 ml Documented by: Lactated Ringer's (Ringers, Lactated) 1,000 mls @ 100 mls/hr IV ASDIRECTED RUSS Last Admin: 06/16/20 01:29 Dose: 100 mls/hr Documented by: Oxytocin/Lactated Ringer's (Pitocin In Lr 10 Units/1,000 Ml) 10 unit in 1,000 mls @ 500 mls/hr IV .CONTINUOUS RUSS Oxytocin/Lactated Ringer's (Pitocin In Lr 10 Units/1,000 Ml) 10 unit in 1,000 mls @ 12 mls/hr IV TITRATE RUSS; Protocol Last Titration: 06/16/20 04:40 Dose: 1 munits/min, 6 mls/hr Documented by: Nalbuphine HCl (Nubain) 10 mg IVPUSH Q2H PRN PRN Reason: Pain Ondansetron HCl (Zofran) 4 mg IVPUSH Q4H PRN PRN Reason: Nausea/Vomiting Sodium Chloride (Saline Flush) 10 ml FLUSH ASDIRECTED PRN PRN Reason: Keep Vein Open - Infant Interaction Infant Disposition, : [place] in Room with Family Interaction: Holding Infant Infant Feeding: Attempted ; Nursed Fair/Poor Support Person: Significant Other - Recovery Exam Fundal Tone: Firm Fundal Level: At Umbilicus Fundal Placement: Midline Lochia Amount: Small Lochia Color: Rubra/Red Perineum Description: Other (see below) Other Perinuem Description: 1 degree with repair Episiotomy/Laceration: Approximated Bladder Status: Voiding Urinary Elimination: Voided - Exam General: Alert, Oriented, Cooperative GI/Abdominal Exam: Soft, Non-Tender Extremities: Normal Inspection - Problem List & Annotations (1) 38 weeks gestation of SNOMED Code(s): 32309690 Code(s): Z3A.38 - 38 WEEKS GESTATION OF Status: Acute Current Visit: Yes (2) Preeclampsia SNOMED Code(s): 380689996 Code(s): O14.90 - UNSPECIFIED PRE-ECLAMPSIA, UNSPECIFIED TRIMESTER Status: Acute Current Visit: Yes Qualifiers: Trimester: third trimester Qualified Code(s): O14.93 - Unspecified pre- eclampsia, third trimester (3) Vaginal delivery SNOMED Code(s): 904543588 Code(s): O80 - ENCOUNTER FOR FULL-TERM UNCOMPLICATED DELIVERY Status: Acute Current Visit: Yes - Problem List Review Problem List Initiated/Reviewed/Updated: Yes - My Orders Last 24 Hours: My Active Orders 06/16/20 06:55 Acetaminophen [TylenoL] 650 mg PO Q4H PRN Benzocaine/Menthol [Dermoplast Pain Relief [place]] See Dose Instructions TOP ASDIRECTED PRN Docusate Sodium [Colace] 100 mg PO BID PRN Ibuprofen [Motrin] 600 mg PO Q6H PRN witch Amara [Tucks] 1 pad TOP ASDIRECTED PRN Heat Therapy [OM.PC] PRN 06/16/20 06:55 Activity as Tolerated [RC] PER UNIT ROUTINE Vital Signs [RC] 03,09,15,21 Assess Lochia [WOMSER] Per Unit Routine Assess Uterine Involution [WOMSER] Per Unit Routine Breast Pump [WOMSER] Per Unit Routine Perineal Care [OM.PC] Per Unit Routine Peripheral IV Discontinue [OM.PC] Routine Sitz Bath [OM.PC] Per Unit Routine 06/16/20 Breakfast Regular Diet [DIET] 06/17/20 06:55 Heat Therapy [OM.PC] PRN 06/17/20 06:56 Ready for Discharge [RC] PER UNIT ROUTINE - Assessment Assessment:: PPD#1 - Plan Plan:: * Routine cares * Breast feeding * BP's have been normal since delivery. Plan repeat assessment in 1 week in clinic * Discharge home today per patient preference
== END 2020-06-17 12:05 | disposition home or self-care (01) | DRG 807 ==
LOC: JD.OBCHECK 18:13 → JD.OB 18:17 → JD.OBCHECK 19:00 → OBSVTOIN 06-16 05:53 → JD.OB 06-16 05:54
PROVIDERS: ADMIT Obstetrics & Gynecology; ATTEND Obstetrics & Gynecology
PROC: 10E0XZZ Delivery of Products of Conception, External Approach (ICD-10-PCS; principal; 2020-06-16)
PROC: 10907ZC Drainage of Amniotic Fluid, Therapeutic from Products of Conception, Via Natural or Artificial Opening (ICD-10-PCS; 2020-06-16)
PROC: 0HQ9XZZ Repair Perineum Skin, External Approach (ICD-10-PCS; 2020-06-16)
PROC: 3E0R3BZ Introduction of Anesthetic Agent into Spinal Canal, Percutaneous Approach (ICD-10-PCS; 2020-06-16)
PROC: 00HU33Z Insertion of Infusion Device into Spinal Canal, Percutaneous Approach (ICD-10-PCS; 2020-06-16)
DX: O14.04 Mild to moderate pre-eclampsia, complicating childbirth (principal); Z37.0 Single live birth; Z3A.38 38 weeks gestation of pregnancy; O99.334 Smoking (tobacco) complicating childbirth; F17.200 Nicotine dependence, unspecified, uncomplicated; Z90.49 Acquired absence of other specified parts of digestive tract; O70.0 First degree perineal laceration during delivery; Z20.822 Contact with and (suspected) exposure to COVID-19
CPT/HCPCS: 01967; 36415; 51702; 59025; 82565; 82570; 84156; 84450; 84460; 85027; 86592; 86850; 86900; 86901; A9270-GY; J0171; J2590; J3010; J3490; J7120; U0002

== ENCOUNTER 2020-06-20 17:20 | Emergency (ER) | payer MEDICAID ==
--- NOTE | 2020-06-20 18:55 | EDM.PDOC ---
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 She is day 4 spontaneous normal vaginal delivery. She states that she stopped bleeding approximately 2 days , however yesterday started having this brownish- yellow discharge which she states is foul-smelling. She is unsure if it is the Tucks pads that are making it smell bad or if it is the actual discharge. She also complains of burning with urination. She thinks she may have had a fever last night, however she did not check her temperature. She is afebrile on triage. She denies any pelvic pain or cramping. She is had no nausea or vomiting. She is breast-feeding. 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: Other (see below) Other Treatments FEATHER CUTTING MACHINE FEEDER: tylenol Vaginal Pain Score (Numeric/FACES): 7 - Related Data Allergies Allergy/AdvReac Type Severity Reaction Status Date / Time meperidine [From Demerol] Allergy Severe Airway Verified 06/20/20 17:38 Tightness Home Meds: Home Meds Vits #93/Iron Fum/FA [ Formula Tablet] 1 tab PO DAILY 06/16/20 [History] Ibuprofen [Motrin] 600 mg PO Q6H PRN tablet 06/17/20 [Rx] Amoxicillin/Clavulanate K [Augmentin 875-125 MG] 1 tab PO BID 10 Days #20 tablet 06/20/20 [Rx] Past Medical History Gastrointestinal History: Reports: GERD SKIP PITMAN History: Reports: Psychiatric History: Reports: Anxiety, Depression, Other (See Below) Other Psychiatric History: Hospitalized in [place] for depression in 2017 - Past Surgical History HEENT Surgical History: Reports: Tonsillectomy GI Surgical History: Reports: Appendectomy Social & Family History - Family History Family Medical History: No Pertinent Family History - Tobacco Use Tobacco Use Status *Q: Current Every Day Tobacco User Years of Tobacco use: 10 Packs/Tins Daily: 0.4 - Caffeine Use Caffeine Use: Reports: Coffee, Soda - Recreational Drug Use Recreational Drug Use: No ED ROS GENERAL - Review of Systems Review Of Systems: See Below Constitutional: Reports: Fever. Denies: Chills, Weakness, Fatigue HEENT: Reports: No Symptoms Respiratory: Reports: No Symptoms Cardiovascular: Reports: No Symptoms Endocrine: Reports: No Symptoms GI/Abdominal: Reports: No Symptoms. Denies: Abdominal Pain, Nausea, Vomiting : Reports: Discharge, Dysuria. Denies: Pain Musculoskeletal: Reports: No Symptoms Skin: Reports: No Symptoms Neurological: Reports: No Symptoms Psychiatric: Reports: No Symptoms Hematologic/Lymphatic: Reports: No Symptoms Immunologic: Reports: No Symptoms ED EXAM, RENAL/ - Physical Exam Exam: See Below General Appearance: Alert, WD/WN, No Apparent Distress Respiratory/Chest: No Respiratory Distress, Lungs Clear, Normal Breath Sounds, No Accessory Muscle Use, Chest Non-Tender Cardiovascular: Normal Peripheral Pulses, Regular Rate, Rhythm, No Edema, No Gallop, No JVD, No Murmur, No Rub GI/Abdominal: Normal Bowel Sounds, Soft, Non-Tender, No Organomegaly, No Distention, No Abnormal Bruit, No Mass (Female) Exam: Normal External Exam, Other (Speculum and bimanual exam deferred due to recent vaginal delivery. Wet prep collected of vaginal discharge.) Neurological: Alert, Oriented, CN II-XII Intact, Normal Cognition, Normal Gait, Normal Reflexes, No Motor/Sensory Deficits Psychiatric: Normal Affect, Normal Mood Skin Exam: Warm, Dry, Intact, Normal Color, No Rash Course - Vital Signs Last Recorded V/S: Last Vital Signs Temp 98.4 F 06/20/20 17:42 Pulse 104 H 06/20/20 17:42 Resp 20 06/20/20 17:42 BP 135/91 H 06/20/20 17:42 Pulse Ox 99 06/20/20 17:42 - Orders/Labs/Meds Orders: Active Orders 24 hr Category Date Time Status CULTURE URINE [RM] Stat Lab 06/20/20 18:47 Received Labs: Laboratory Tests 06/20/20 06/20/20 06/20/20 Range/Units 18:00 18:00 18:20 WBC 10.97 H (3.98-10.04) K/mm3 RBC 4.67 (3.98-5.22) M/mm3 Hgb 14.4 (11.2-15.7) gm/dl Hct 41.5 (34.1-44.9) % MCV 88.9 (79.4-94.8) fl MCH 30.8 (25.6-32.2) pg MCHC 34.7 (32.2-35.5) g/dl RDW Std Deviation 41.6 (36.4-46.3) fL Plt Count 270 (182-369) K/mm3 MPV 10.1 (9.4-12.3) fl Neut % (Auto) 61.0 (34.0-71.1) % Lymph % (Auto) 29.2 (19.3-51.7) % [place] % (Auto) 6.1 (4.7-12.5) % Eos % (Auto) 3.2 (0.7-5.8) Baso % (Auto) 0.2 (0.1-1.2) % Neut # (Auto) 6.70 H (1.56-6.13) K/mm3 Lymph # (Auto) 3.20 (1.18-3.74) K/mm3 [place] # (Auto) 0.67 H (0.24-0.36) K/mm3 Eos # (Auto) 0.35 (0.04-0.36) K/mm3 Baso # (Auto) 0.02 (0.01-0.08) K/mm3 Manual Slide Review Normal smear Sodium 142 (136-145) mEq/L Potassium 3.8 (3.5-5.1) mEq/L Chloride 105 (98-107) mEq/L Carbon Dioxide 22 (21-32) mEq/L Anion Gap 18.8 H (5-15) BUN 12 (7-18) mg/dL Creatinine 1.1 H (0.55-1.02) mg/dL Est Cr Clr Drug Dosing 83.81 mL/min Estimated GFR (MDRD) > 60 (>60) mL/min BUN/Creatinine Ratio 10.9 L (14-18) Glucose 94 (74-106) mg/dL Calcium 9.2 (8.5-10.1) mg/dL Total Bilirubin 0.7 (0.2-1.0) mg/dL AST 19 (15-37) U/L ALT 18 (14-59) U/L Alkaline Phosphatase 97 (46-116) U/L C-Reactive Protein 3.0 H* (<1.0) mg/dL Total Protein 7.1 (6.4-8.2) g/dl Albumin 2.9 L (3.4-5.0) g/dl Globulin 4.2 gm/dL Albumin/Globulin Ratio 0.7 L (1-2) Urine Color Yellow (Yellow) Urine Appearance Cloudy H (Clear) Urine pH 5.5 (5.0-8.0) Ur Specific [place] > or = 1.030 (1.005-1.030) Urine Protein 1+ H (Negative) Urine Glucose (UA) Negative (Negative) Urine Ketones Negative (Negative) Urine Occult Blood 3+ H (Negative) Urine Nitrite Negative (Negative) Urine Bilirubin Negative (Negative) Urine Urobilinogen 1.0 (0.2-1.0) Ur Leukocyte Esterase 1+ H (Negative) Urine RBC 50-75 H (0-5) /hpf Urine WBC 40-50 H (0-5) /hpf Ur Epithelial Cells 5-10 H (0-5) /hpf Urine Bacteria Moderate H (FEW) /hpf Urine Mucus Moderate H (FEW) /hpf - Re-Assessments/Exams Free Text/Narrative Re-Assessment/Exam: Patient is a 25-year-old female presenting to the emergency department with complaints of brownish-yellow, foul-smelling vaginal discharge. She is 4 days normal spontaneous vaginal delivery. She thinks she may have been febrile last evening, however she did not check her temperature at home. She is afebrile today on discharge. She denies any pelvic pain or cramping. She does complain of dysuria which she states has been present since she gave . She denies any nausea or vomiting. I have ordered CBC, CMP, CRP, urinalysis, and a wet prep. Since she is only day 4, I will defer speculum and manual exam. I will collect a wet prep of the vaginal discharge. Plan will be to consult with SKIP PITMAN once results are available. 06/20/20 18:55 Hematology was significant for WBC minimally elevated at 10.97. This is down from 13.7 five days ago. 18.8, CRP 3.0. Urinalysis was cloudy with 1+ protein, 3+ occult blood, 1+ leukocyte esterase, 50-75 RBCs, 40-50 WBCs, 5-10 squamous epithelial cells moderate bacteria and moderate mucus. Prep shows a few clue cells, many WBCs, few RBCs, and many epis. Case discussed with Dr. Barros, SKIP PITMAN on-call. He recommends starting the patient on course of Augmentin for treatment of urinary tract infection as this is broad-spectrum and should cover for most other possible infections and is safe with breast-feeding. I will send a prescription for 10-day course of Augmentin. Patient has a follow-up appointment scheduled with her SKIP PITMAN, Dr. Augustine, on Monday. Discussed return precautions. Discharge instructions as documented. Departure - Departure Time of Disposition: 18:56 Disposition: Home, Self-Care 01 Condition: Good Clinical Impression: Urinary tract infection Qualifiers: Urinary tract infection type: site unspecified Hematuria presence: with hematuria Qualified Code(s): N39.0 - Urinary tract infection, site not specified - Discharge Information *PRESCRIPTION DRUG MONITORING PROGRAM REVIEWED*: No *COPY OF PRESCRIPTION DRUG MONITORING REPORT IN PATIENT CHRIS: No Prescriptions: Amoxicillin/Clavulanate K [Augmentin 875-125 MG] 1 tab PO BID 10 Days #20 tablet Instructions: Urinary Tract Infection, Adult, Ckcn-yr-Cyen Referrals: Claire Augustine MD [Primary Care Provider] - Forms: ED Department Discharge Additional Instructions: You were seen in the emergency department this evening with concerns of burning with urination as well as a foul-smelling vaginal discharge. Work-up included blood work, urinalysis, and a wet prep of the vaginal discharge. Results your work-up showed that you have a urinary tract infection. You have been started on Augmentin which is a broad-spectrum antibiotic that will cover MRSA sources of infection. Take this medication as prescribed. Follow-up with Dr. Augustine on Monday as scheduled. If you should experience any worsening symptoms such as fever, chills, abdominal pain, nausea, vomiting, please return to the emergency department for reevaluation. Sepsis Event Note (ED) - Evaluation Sepsis Screening Result: No Definite Risk - Focused Exam Vital Signs: Vital Signs Temp Pulse Resp BP Pulse Ox 06/20/20 17:42 98.4 F 104 H 20 135/91 H 99 - My Orders Last 24 Hours: My Active Orders 06/20/20 18:47 CULTURE URINE [RM] Stat - Assessment/Plan Last 24 Hours: My Active Orders 06/20/20 18:47 CULTURE URINE [RM] Stat
== END 2020-06-20 19:05 | disposition home or self-care (01) ==
LOC: JD.ED 17:20
DX: O86.20 Urinary tract infection following delivery, unspecified (principal); O99.335 Smoking (tobacco) complicating the puerperium; F17.210 Nicotine dependence, cigarettes, uncomplicated; Z88.5 Allergy status to narcotic agent
CPT/HCPCS: 36415; 80053; 81001; 85025; 86140; 87086; 87088; 87210; 87808; 99283

== ENCOUNTER 2023-05-03 12:22 | Emergency (ER) | payer BC, MEDICAID | END 2023-05-03 15:50 | disposition home or self-care (01) | LOC: JD.ED 12:22 | DX: N94.6 Dysmenorrhea, unspecified (principal); Z88.6 Allergy status to analgesic agent; Z90.49 Acquired absence of other specified parts of digestive tract | CPT/HCPCS: 36415; 76817; 76817-26; 84702; 86900; 86901; 99284 ==